=== PATIENT | female | born 1995 | race Caucasian/White ===

== ENCOUNTER 2023-09-23 20:36 | Emergency (ER) | payer BC ==
[~2023-09-23] VITALS: Ht 162.6 cm; Wt 98.0 kg
[2023-09-23 20:47] VITALS: O2SAT 98
[2023-09-23] MEDS ORDERED: AMOX-494 MT (22:41)
[2023-09-23] MEDS ORDERED: TOPUD PO (22:42)
[2023-09-23] MEDS ORDERED: IBUP-2028 MT (22:42)
[2023-09-23] MEDS: DEXAMETHASONE 4MG TABLET PO ONE (23:35)
[2023-09-23] MEDS: IBUPROFEN 400MG TABLET PO ONE (23:39)
[2023-09-24 00:15] VITALS: BP 120/66; PULSE 84; RESP 20; TEMP 98.2
== END 2023-09-24 00:15 | disposition home or self-care (01) ==
LOC: ER 20:36
DX: J06.9 Acute upper respiratory infection, unspecified (principal); J02.9 Acute pharyngitis, unspecified
CPT/HCPCS: 99283; J8540